=== PATIENT | female | born 1995 | race Caucasian/White ===

== ENCOUNTER 2016-12-25 17:33 | Emergency (ER) | payer MEDICAID | END 2016-12-25 20:33 | disposition home or self-care (01) | LOC: D.ER 17:33 | DX: S16.1XXA Strain of muscle, fascia and tendon at neck level, initial encounter (principal); Y04.2XXA Assault by strike against or bumped into by another person, initial encounter; Y93.89 Activity, other specified; Y92.89 Other specified places as the place of occurrence of the external cause; F17.200 Nicotine dependence, unspecified, uncomplicated; F41.9 Anxiety disorder, unspecified; F32.9 Major depressive disorder, single episode, unspecified ==

== ENCOUNTER 2017-08-30 10:08 | Emergency (ER) | payer MEDICAID ==
[2017-08-30 10:46] LABS: HCG URINE NEGATIVE (NEGATIVE)
== END 2017-08-30 12:26 | disposition home or self-care (01) ==
LOC: D.ER 10:08
PROVIDERS: Nurse Practitioner Family
DX: R51 Headache (principal)